=== PATIENT | female | born 1940 | race American Indian/Alaskan Native ===

== ENCOUNTER 2017-08-01 12:18 | Emergency (ER) | payer MEDICARE ==
[~2017-08-01] VITALS: Ht 152.4 cm; Wt 72.6 kg
[2017-08-01] MEDS ORDERED: OMEPRAZOLE20 MG PO (13:44)
[2017-08-01] MEDS ORDERED: CARBIDOPA-LEVO1 EAC1 PO (13:45)
--- NOTE | 2017-08-02 08:02 | EKG ---
[facility] [address] [facility] [place] [address] Signed Normal sinus rhythm Normal ECG No previous ECGs available Confirmed by MATTHEW FELDMAN MD ([id number]) on 08/02/2017 8:02:16 AM Electronically Signed By: MATTHEW FELDMAN MD 08/02/17 0802 PATIENT NAME: PRESLEY ELIZABETH Electrocardiogram DATE OF : 38 PHYSICIAN: MATTHEW FELDMAN MD REPORT #: [id number] REPORT IS CONFIDENTIAL AND NOT TO BE RELEASED WITHOUT AUTHORIZATION
== END 2017-08-01 18:11 | disposition home or self-care (01) ==
LOC: ED 12:18
DX: R53.83 Other fatigue (principal); Z79.899 Other long term (current) drug therapy
CPT/HCPCS: 70450; 71045; 80053; 81001; 83605; 84484; 85025; 87077; 87088; 87186; 93005; 93010; 99284; J7120